=== PATIENT | male | born 1975 | race Caucasian/White ===

== ENCOUNTER → 2019-08-28 14:39 | Outpatient (BNVA) | payer SELFPAY | PROVIDERS: Visit Provider Nurse Practitioner Family | DX: S91.339A Puncture wound without foreign body, unspecified foot, initial encounter (principal); M25.579 Pain in unspecified ankle and joints of unspecified foot; X58.XXXA Exposure to other specified factors, initial encounter | CPT/HCPCS: 73610; 73630 ==

== ENCOUNTER → 2019-08-30 16:39 | Outpatient (BNVA) | payer SELFPAY | PROVIDERS: Visit Provider Nurse Practitioner Family | DX: L03.119 Cellulitis of unspecified part of limb (principal); S91.331A Puncture wound without foreign body, right foot, initial encounter; M79.671 Pain in right foot; M10.9 Gout, unspecified; X58.XXXA Exposure to other specified factors, initial encounter | CPT/HCPCS: 36415; 80053; 84550; 85025 ==